=== PATIENT | female | born 1985 | race Two or more races ===

== ENCOUNTER 2024-05-29 11:04 | Outpatient (AMB) | payer OTHER, SELFPAY ==
--- NOTE | 2024-05-29 11:14 | GSCOFFNT_ITS ---
Vital Signs - [facility] 05/29/24 11:15 Height 1.6 m Height Method Stated Weight 63.588 kg Weight Measurement Method Standing Scale BMI 24.8 BP 111/76 Blood Pressure Source Automatic Cuff Blood Pressure Location Right Upper Arm Position Sitting Respiration 18 Pulse 87 Pulse Source Monitor Temp 96.9 F Temp Source Temporal Artery Scan Pulse Oximetry (%) 98 Oxygen Delivery Method Room Air Med/Allergies Allergies & Medications Allergies No Known Allergies Allergy (Verified 05/29/24 11:16) Medication Reconciliation ibuprofen 800 mg tablet 800 mg PO TID PRN pain #30 tabs 07/05/21 [Rx Confirmed 05/29/24] prednisone 50 mg tablet 50 mg PO QDAY #7 tabs 07/05/21 [Rx Confirmed 05/29/24] valacyclovir 1 gram tablet (Valtrex) 1,000 mg PO TID #21 tabs 07/05/21 [Rx Confirmed 05/29/24] MA Intake Visit Data Collection New Patient or Established: New Patient (never been to [facility]) Seen by Clinical Staff ONLY (RN/MA): No Reason for Visit:: REFERRAL HEMORRHOIDS Pain Present Currently: No Track Service Person Required: No PCP or OBGYN visit in last 3 months: Yes Hx Now: No Do You Feel Safe at Home: Yes Authorities Contacted: N/A Smoking Status Smoking Status: Never smoker Immunization / Flu Flu Vaccine in the Last 12 Months: No Flu Vaccine Exclusion Criteria: Refused by Patient Past Medical History Past Medical History NEUROLOGIC: Negative Neurological Disorders, Seizures or Migraine CARDIAC: Negative Cardiac Disorders, Hypercholesterolemia, Congestive Heart Failure or Hypertension RESPIRATORY: Negative Chronic Obstructive Pulmonary Disease (COPD) GASTROINTESTINAL: Negative Gastrointestinal Disorders GENITOURINARY: Negative Genitourinary Disorders or Renal Disease REPRODUCTIVE: Positive Previous Pregnancies (x4) MUSCULOSKELETAL: Negative Fractures ENDOCRINE: Negative Diabetes Mellitus Type 1 or Diabetes Mellitus Type 2 (prediabetic controlling with diet) HEMATOLOGIC: Positive Anemia (was on iron supplements); Negative Blood Disorders OTHER HISTORY: Negative Autoimmune Disease, Blood Transfusions, Blood Transfusion Reaction, Anesthesia Reactions, MRSA, Clostridium Difficile or Cancer Family History FAMILY HISTORY: Positive Family Cardiac Disorders (high cholesterol (mother, brother)) and Family Surgery; Negative Family Psychiatric Problems, Family Respiratory Disorders, Family Gastrointestinal Problems or Family Anesthesia Reaction Social History SMOKING STATUS: Smoking status: Never smoker ALCOHOL: Alcohol Intake: Current HOUSING: Housing: House [facility] HPI Narrative 39 Y F presenting with painful external hemorrhoids that began during initial child 16 years ago. Per patient she has had worsening hemorrhoids with each subsequent child bearing, states that they are bothersome when they protrude but they do reduce, and she was advised by her PCP that they were purple on the last exam. Pt states her BMs are soft without any straining but for the last few months she has noted they come out in a curved shape, although denies any bleeding, anorexia or unintentional weight loss. Pt also states she has occasional diarrhea which makes her symptoms worse. She is using a cream prescribed by her PCP (unsure of the name) which helps with symptoms and at the moment her hemorrhoids are reduced, not too bothersome. She has never had a colonoscopy PMH: Anemia PSHx: Diagnostic laparoscopy/hysteroscopy for endometriosis Family hx: mother had breast CA, no known CRC Social hx: nonsmoker ROS Review of Systems Systems Reviewed: All systems reviewed, normal except as documented Objective/Exam General General Appearance: alert, cooperative and well groomed Resp Respiratory exam: Absent respiratory distress Rectal Rectal exam: Present other (small external hemorrhoids, normal YOSHI, internal hemorrhoid seen on anoscopy) Assessment & Plan Diagnosis / Problem List (1) Hemorrhoid: Status: Acute Assessment & Plan: 39F with longstanding history of symptomatic hemorrhoids. I explained that colonoscopy is not necessarily mandatory given the absence of alarm symptoms but could be performed to investigate the change in stool shape she has noted over the past few months. I also explained risks/benefits of THD, pt expressed understanding and would like to consider, will call back to schedule and/or if she has any other questions/concerns Office Procedures GNS Level of Care Nursing/Assessment Patient Status: Established Patient Nursing Assessment/Reassesment: Medication Reconciliation, Update PMH in EMR and Vital Signs Coordination of Care: Complex Care and Chronic Disease 1-5, Education Complex Pt/Fam, Consent,records obtained, informed consent, 1 Ins Authorization and Staff clarify orders Established Patient Charge Established Patient Point Assignment: 105 Established Patient Point Charge: EP Level 3 (80-115) Patient Portal Questionaires Social History Living Situation History Housing: House Tobacco History Smoking Status: Never smoker Alcohol History Alcohol Intake: Current Domestic Abuse History Do You Feel Safe at Home: Yes Review of Systems Report any current symptoms Only answer those that you have currently: Past Medical History Past Medical History Have you ever been diagnosed with any of the following: Neurological Problems Seizures: No Migraine: No Cardiology Problems Hypercholesterolemia: No Congestive Heart Failure: No Hypertension: No Respiratory Problems Chronic Obstructive Pulmonary Disease (COPD): No Genital/Urinary Problems Renal Disease: No Reproductive Problems Previous Pregnancies: Yes (x4) Musculoskeletal Problems Fractures: No Endocrine Problems Diabetes Mellitus Type 1: No Diabetes Mellitus Type 2: No (prediabetic controlling with diet) Blood Problems Anemia: Yes (was on iron supplements) Other Problems Autoimmune Disease: No Blood Transfusions: No Blood Transfusion Reaction: No Anesthesia Reactions: No MRSA: No Clostridium Difficile: No Cancer: No
[2024-05-29 11:15] VITALS: BP 111/76; PULSE 87; RESP 18; TEMP 36.1; O2SAT 98; BMI 24.8
== END 2024-05-29 12:18 | disposition home or self-care (01) ==
PROVIDERS: PCP Obstetrics & Gynecology; Referring Provider Obstetrics & Gynecology; Supervising Provider Surgery; Visit Provider Surgery
DX: K64.9 Unspecified hemorrhoids (principal)
CPT/HCPCS: 99213; G0463

== ENCOUNTER 2024-10-16 14:29 | Outpatient (AMB) | payer OTHER, SELFPAY ==
[2024-10-16 14:34] VITALS: BP 111/78; PULSE 103; RESP 18; TEMP 36.7; O2SAT 98; BMI 25.2
--- NOTE | 2024-10-16 14:34 | PD.GSCLVISIT ---
Vital Signs - [facility] 10/16/24 14:34 Height 1.6 m Height Method Stated Weight 64.609 kg Weight Measurement Method Standing Scale BMI 25.2 BP 111/78 Blood Pressure Source Automatic Cuff Blood Pressure Location Left Upper Arm Position Sitting Respiration 18 Pulse 103 H Pulse Source Monitor Temp 98.1 F Temp Source Temporal Artery Scan Pulse Oximetry (%) 98 Oxygen Delivery Method Room Air Med/Allergies Allergies & Medications Allergies No Known Allergies Allergy (Verified 05/29/24 11:16) MA Intake Visit Data Collection New Patient or Established: Established Patient (seen at [facility] within 3 years) Seen by Clinical Staff ONLY (RN/MA): No Pain Present Currently: Yes Pain scale:: 2 PCP or OBGYN visit in last 3 months: Yes Hx Now: No Do You Feel Safe at Home: Yes Authorities Contacted: N/A Smoking Status Smoking Status: Never smoker Immunization / Flu Flu Vaccine in the Last 12 Months: No Flu Vaccine Exclusion Criteria: Refused by Patient Past Medical History Past Medical History NEUROLOGIC: Negative Neurological Disorders, Seizures or Migraine CARDIAC: Negative Cardiac Disorders, Hypercholesterolemia, Congestive Heart Failure or Hypertension RESPIRATORY: Negative Chronic Obstructive Pulmonary Disease (COPD) GASTROINTESTINAL: Negative Gastrointestinal Disorders GENITOURINARY: Negative Genitourinary Disorders or Renal Disease REPRODUCTIVE: Positive Previous Pregnancies (x4) MUSCULOSKELETAL: Negative Fractures ENDOCRINE: Negative Diabetes Mellitus Type 1 or Diabetes Mellitus Type 2 (prediabetic controlling with diet) HEMATOLOGIC: Positive Anemia (was on iron supplements); Negative Blood Disorders OTHER HISTORY: Negative Autoimmune Disease, Blood Transfusions, Blood Transfusion Reaction, Anesthesia Reactions, MRSA, Clostridium Difficile or Cancer Family History FAMILY HISTORY: Positive Family Cardiac Disorders (high cholesterol (mother, brother)) and Family Surgery; Negative Family Psychiatric Problems, Family Respiratory Disorders, Family Gastrointestinal Problems or Family Anesthesia Reaction Social History SMOKING STATUS: Smoking status: Never smoker ALCOHOL: Alcohol Intake: Current HOUSING: Housing: House [facility] Narrative 39F originally referred for hemorrhoids now presenting with change in bowel habits. Pt reports that for the last couple of months she has noted diarrhea, having up to 3 BMs per day which are loose and sometimes contain blood mixed in the stool. Pt also reports having generalized abdominal pain after she eats, even after cutting out spicy/fried foods. She denies any perianal pain but does feel a pulsing in her colon for which she underwent xrays by her PCP which she was advised were normal. Pt states she has been feeling somewhat ill lately with subjective fevers but relates this to a virus she caught from her . Pt denies any anorexia and unintentional weight loss PMH: Endometriosis PSHx: Dx lap/hysteroscopy Meds: None Allergies: NKDA Family hx: no known IBD or malignancies ROS Review of Systems Systems Reviewed: All systems reviewed, normal except as documented Objective/Exam General General Appearance: alert, cooperative and well groomed Resp Respiratory exam: Absent respiratory distress Assessment & Plan Diagnosis / Problem List (1) Change in bowel habits: Status: Acute Assessment & Plan: 39F presenting with 2-month history of loose BMs, blood in stool and abdominal pain. I explained that I would first like to evaluate with a CT scan, and pending that result will plan on diagnostic colonoscopy. All questions were answered and pt is agreeable to this plan Office Procedures GNS Level of Care Nursing/Assessment Patient Status: Established Patient Nursing Assessment/Reassesment: Medication Reconciliation, Update PMH in EMR and Vital Signs Coordination of Care: Complex Care and Chronic Disease 1-5, Consent,records obtained, informed consent, Education Simp Pt/Fam, Results/Orders obtained and Staff clarify orders Established Patient Charge Established Patient Point Assignment: 90 Established Patient Point Charge: EP Level 3 (80-115) Patient Portal Questionaires Social History Living Situation History Housing: House Tobacco History Smoking Status: Never smoker Alcohol History Alcohol Intake: Current Domestic Abuse History Do You Feel Safe at Home: Yes Review of Systems Report any current symptoms Only answer those that you have currently: Past Medical History Past Medical History Have you ever been diagnosed with any of the following: Neurological Problems Seizures: No Migraine: No Cardiology Problems Hypercholesterolemia: No Congestive Heart Failure: No Hypertension: No Respiratory Problems Chronic Obstructive Pulmonary Disease (COPD): No Genital/Urinary Problems Renal Disease: No Reproductive Problems Previous Pregnancies: Yes (x4) Musculoskeletal Problems Fractures: No Endocrine Problems Diabetes Mellitus Type 1: No Diabetes Mellitus Type 2: No (prediabetic controlling with diet) Blood Problems Anemia: Yes (was on iron supplements) Other Problems Autoimmune Disease: No Blood Transfusions: No Blood Transfusion Reaction: No Anesthesia Reactions: No MRSA: No Clostridium Difficile: No Cancer: No
== END 2024-10-16 15:10 | disposition home or self-care (01) ==
LOC: HODSRG 14:29
PROVIDERS: Supervising Provider Surgery; Visit Provider Surgery
DX: R19.4 Change in bowel habit (principal); R10.84 Generalized abdominal pain
CPT/HCPCS: 99213; G0463

== ENCOUNTER → 2024-10-18 | Outpatient (CLI) | payer OTHER, SELFPAY ==
[2024-10-18 11:40] LABS: Urea Breath Test Negative (Negative)
[2024-10-18 11:54] LABS: Albumin, Serum 4.6 gm/dL (3.5-5.0); Anion Gap 9 (7-16); BUN/Creatinine Ratio 15 Ratio (12-20); Blood Urea Nitrogen 9 mg/dL (9-23); Calcium 9.6 mg/dL (8.3-10.6); Calcium (Corrected) 9.6 mg/dL (8.5-10.1); Chloride 103 mMol/L (98-107); Creatinine (Component) 0.6 mg/dL (0.6-1.3); Glucose 82 mg/dL (74-106); Osmolality,Calculated 273 (275-295); Phosphorous 3.3 mg/dL (2.4-5.1); Potassium 4.1 mMol/L (3.4-5.1); Sodium 138 mMol/L (136-145); eGFR > 60 See Note
== END | disposition home or self-care (01) ==
LOC: COPL 10:44
PROVIDERS: Referring Provider Surgery; Visit Provider Surgery
DX: R19.4 Change in bowel habit (principal)
CPT/HCPCS: 36415; 80069; 83013; 83014

== ENCOUNTER → 2024-10-19 | Outpatient (CLI) | payer OTHER, SELFPAY ==
--- NOTE | 2024-10-19 09:45 | XR_ITS ---
Examination: CT abdomen with intravenous contrast CT pelvis with intravenous contrast 2-D coronal reconstructions 2-D sagittal reconstructions Date and time of exam:October 19, 2024 1043 hours INDICATIONS: Generalized abdominal pain diarrhea hematochezia one week. CTDI: vol (mGy) 7.08 DLP: (mGycm) 357 Technique: Multiple axial sections of the abdomen and pelvis have been obtained. 64 slice high-resolution scanner used. 3 mm axial sections have been obtained, post intravenous injection 60 cc [id number] 2-D sagittal, coronal reconstructions obtained. Low dose protocols were performed. One or more of the following dose reduction techniques were used; automated exposure control, adjustment of the mA and/or KV according to patient size, use of iterative reconstruction technique. Findings: No focal liver or splenic lesion No gallstones No pancreatic or adrenal mass No renal or ureteral calculi, no hydronephrosis Aorta normal size Normal appendix No bowel obstruction No pelvic mass Mild free fluid in the pelvis 23 mm left adnexal partially involuting cyst Contracted urinary bladder Moderate osteopenia IMPRESSION: Normal appendix No bowel obstruction or colitis Mild free fluid in the pelvis 23 mm left adnexal partially involuting cyst
[2024-10-19 09:51] LABS: HCG Qualitative,Urine Negative
== END | disposition home or self-care (01) ==
PROVIDERS: PCP Physician Assistant; Referring Provider Surgery; Visit Provider Surgery
DX: E27.8 Other specified disorders of adrenal gland (principal); Z32.00 Encounter for pregnancy test, result unknown
CPT/HCPCS: 74177; 81025; A4649; Q9967

== ENCOUNTER 2024-10-26 08:30 | Day surgery (SDC) | payer OTHER, SELFPAY ==
[2024-10-25 11:13] LABS: HCG Qualitative,Urine Negative
[2024-10-25 14:38] VITALS: BMI 24.7
[2024-10-26] VITALS (9 sets, daily range): BP systolic 95–119; BP diastolic 63–76; PULSE 74–112; RESP 10–21; TEMP 36.2–37.1; O2SAT 100; BMI 25.1
[2024-10-26] MEDS: DiphenhydrAMINE INJ 50 MG/ML VIAL 25 MG IV (10:20)
[2024-10-26] MEDS: fentaNYL CIT INJ 50 mCg/ML AMP 2ML (ASD USE ONLY) IV (10:21)
[2024-10-26] MEDS: LIDOCAINE JELLY 2% (Urojet) 10 ML TUBE TOP (10:22)
[2024-10-26] MEDS: MIDAZOLAM INJ 1 MG/ML VIAL 2 ML (ASD USE ONLY) 2 MG IV (10:23)
[2024-10-26] MEDS: ONDANSETRON INJ 2 MG/ML INJ 2 ML 4 MG IV (10:36)
--- NOTE | 2024-10-26 10:39 | SUR.PHASEII ---
PATIENT INTO RECOVERY WITH NO ACUTE DISTRESS NOTED, V/S SIGNS STABLE, PATIENT DENIES PAIN AND NAUSEA, PATIENT ACTIVELY PASSING FLATUS, REPORT RECEIVED FROM APRIL MCDONALD.
--- NOTE | 2024-10-26 11:15 | SUR.PHASEII ---
PATIENT ASKS IF SHE WAS CRYING DURING THE PROCEDURE. THIS NURSE INFORMED HER THAT SHE WAS NOT PRESENT FOR THE PROCEDURE SO IT IS UNKNOWN. PATIENT ASKS TO SPEAK WITH THE NURSE THAT WAS WITH HER DURING PROCEDURE. APRIL RN AT BEDSIDE TO SPEAK WITH PATIENT. APRIL INFORMS THE PATIENT THAT SHE WAS NOT CRYING BUT DID COMPLAIN OF ABDOMINAL PRESSURE INTERMITTENTLY IN WHICH SHE ADMINISTERED MORE MEDICATIONS PER DR ORDERS. PATIENT THANKS APRIL.
== END 2024-10-26 11:20 | disposition home or self-care (01) ==
PROVIDERS: PCP Physician Assistant; Referring Provider Surgery; Visit Provider Surgery
PROC: 0DBE8ZX Excision of Large Intestine, Via Natural or Artificial Opening Endoscopic, Diagnostic (ICD-10-PCS; CPT 45380; principal; 2024-10-26 10:00)
DX: K64.8 Other hemorrhoids (principal)
CPT/HCPCS: 45378; 81025; J1200; J2250; J2405; J3010

== ENCOUNTER 2024-12-04 10:31 | Outpatient (AMB) | payer OTHER, SELFPAY ==
--- NOTE | 2024-12-04 10:40 | AMB.GYNCLNOT ---
Vital Signs 12/04/24 10:44 Height 1.6 m Height Method Stated Weight 64.07 kg Weight Measurement Method Standing Scale BMI 25.0 BP 103/67 Blood Pressure Source Automatic Cuff Blood Pressure Location Right Upper Arm Position Sitting Respiration 14 Pulse 84 Pulse Source Monitor Temp 97.8 F Temp Source Oral Pulse Oximetry (%) 98 Oxygen Delivery Method Room Air Allergies/Home Meds Allergies & Medications Allergies No Known Allergies Allergy (Verified 12/04/24 10:45) Medication Reconciliation No Known Home Medications 12/04/24 [History Confirmed 12/04/24] Intake Visit Data Collection New Patient or Established: Established Patient (seen at [facility] within 3 years) Reason for Visit:: ENDOMETRIOSIS Seen by Clinical Staff ONLY (RN/MA): No Fibreglass Gun Hand Required: No Do You Feel Safe at Home: Yes Authorities Contacted: N/A PCP or OBGYN visit in last 3 months: Yes Hx Now: No Are you currently on any form of Control: Yes Last menstrual period: 11/24/24 Pain Present Currently: No Pain Scale Used: Ko-Fraknel/Numerical Pain scale:: 0 Smoking Status Smoking Status: Never smoker 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 1. Little interest or pleasure in doing things: not at all 2. Feeling down, depressed, or hopeless: not at all Total score: 0 PHQ-9 3. Trouble falling or staying asleep, or sleeping too much: Not at all 4. Feeling tired or having little energy: Not at all 5. Poor appetite or overeating: Not at all 6. Feeling bad about yourself - or that you are a failure or have let yourself or your family down: Not at all 7. Trouble concentrating on things, such as reading the newspaper or watching television: Not at all 8. Moving or speaking so slowly that other people could have noticed? - Or the opposite - being so fidgety or restless that you have been moving around a lot more than usual: not at all 9. Thoughts that you would be better off or of hurting yourself in some way: Not at all Total score: 0 Source: Developed by Drs. Gentry Jarrell, Virginia Garcia, Cornelio Singh and colleagues, with an educational angelique from [employer]. Depression screen completed yes Social History Living Situation History Marital Status: Lives With: Family Housing: House Tobacco History Smoking Status: Never smoker Second Hand Smoke Exposure: No Alcohol History Alcohol Intake: Never Domestic Abuse History Do You Feel Safe at Home: Yes History of Present Illness HPI Narrative Patient presents with chief complaints of back pain, breast pain during ovulation, and recurrent vaginal discharge. She reports experiencing significant back pain, which began in September. X-rays were performed at a clinic, but no abnormalities were identified. The back pain is localized to a specific area and has been persistent. Concurrent with the onset of back pain, the patient experienced bloating and noticed blood in her stool. A colonoscopy was performed by Dr. Gong, which showed normal results. Despite this, the patient continues to experience back pain. The patient reports breast pain, particularly during her ovulation week. She also mentions ongoing issues with vaginal discharge. The patient expresses concern about these symptoms, wondering if they could be related to endometriosis, which had been mentioned in a previous visit. She reports experiencing brain fog and fatigue, which she initially thought might be related to menopause. However, she acknowledges that these symptoms could be due to allergies or other factors. Regarding her menstrual cycle, the patient describes passing large blood clots, particularly on the third day of her period. She reports that this occurs consistently every month and finds it concerning. The patient denies any recent triggers such as heavy lifting or strenuous exercise that might have caused her back pain. She also denies currently trying to become . She has a history of hemorrhoids and has undergone a colonoscopy with normal findings. The patient is currently using OTC hemorrhoid cream. Review of Systems Review of Systems Systems Reviewed: All systems reviewed, normal except as documented Exam General General Appearance: alert, in no apparent distress and healthy appearing Head Head exam: atraumatic Neck Neck exam: Present normal inspection and trachea midline Chest Chest inspection: Present normal inspection and symmetric chest wall rise External exam: Present normal external exam; Absent tenderness Neuro Neurological exam: Present oriented X3 Psych Psychiatric exam: Present normal affect and normal mood Results Objective Imaging: Diagnostic Test Results and Labs: - test (05/03/2020): Negative - Ultrasound (05/03/2020): - Uterus: 8.3 cm, normal appearance - Endometrial thickness: Within normal limits - Cervix: Normal - Adnexa: Normal - Right ovary: 4 cm - Left ovary: 3 cm - Bilateral small follicles present - X-rays (September 2024): Normal - Colonoscopy (Date N/A): Performed by Dr. Gong, normal Assessment & Plan Diagnosis / Problem List (1) Pelvic and perineal pain: Status: Acute (2) Endometriosis: Status: Acute (3) Allergic rhinitis: Status: Acute Plan Chronic Back Pain Plan: - Consider referral to physical therapy or parking line painter if pain persists. - Recommend [id number] pain relievers as needed. - Advise patient to return if symptoms worsen or new symptoms develop. Menstrual Irregularities with Possible Endometriosis Plan: - Discuss Lupron injection therapy for diagnostic and therapeutic purposes. - Provide patient with informational printout on Lupron. - If patient agrees, administer monthly Lupron injections for two months, starting after next menstrual cycle. - Explain potential side effects and benefits of Lupron therapy. - Consider laparoscopy for definitive diagnosis if Lupron trial is declined or ineffective. - Discuss long-term management options. - Recommend consideration of progesterone-containing IUD (e.g., Mirena) for management of heavy menstrual flow and potential cancer risk reduction. - Follow up after Lupron trial or when patient has made a decision regarding treatment options. Allergic Rhinitis Plan: - Recommend switching from Claritin to cetirizine (Zyrtec) for more effective allergy symptom control. - Advise taking cetirizine twice daily until symptoms improve, then once daily for maintenance. 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
[2024-12-04 10:44] VITALS: BP 103/67; PULSE 84; RESP 14; TEMP 36.6; O2SAT 98; BMI 25.0
== END 2024-12-04 11:35 | disposition home or self-care (01) ==
LOC: HODSOBC 10:31
PROVIDERS: PCP Physician Assistant; Referring Provider Physician Assistant; Supervising Provider Obstetrics & Gynecology; Visit Provider Obstetrics & Gynecology
DX: N80.9 Endometriosis, unspecified (principal); J30.9 Allergic rhinitis, unspecified; G89.29 Other chronic pain; M54.9 Dorsalgia, unspecified; Z87.19 Personal history of other diseases of the digestive system
CPT/HCPCS: 99213; G0463

== ENCOUNTER → 2025-04-19 | Outpatient (CLI) | payer OTHER, SELFPAY ==
--- NOTE | 2025-04-19 09:30 | XR_ITS ---
Examination: Breast ultrasound complete, bilateral Date and time of exam: April 19, 2025, 0935 hours INDICATIONS: Family history breast cancer, yearly breast screening study Technique: Real-time grayscale ultrasonographic imaging bilateral breasts, including all 4 quadrants as well as nipple retroareolar and axillary regions. Findings: Sonographic images right and left breast No cystic or solid mass IMPRESSION: BI-RADS Category 1: Negative study
== END | disposition home or self-care (01) ==
DX: N64.4 Mastodynia (principal)
CPT/HCPCS: 76641